=== PATIENT | female | born 1975 | race Caucasian/White ===

== ENCOUNTER 2024-10-02 16:17 | Emergency (ER) | payer OTHER ==
[2024-10-02 17:00] VITALS: RESP 20; TEMP 100.9; BMI 41.8
[2024-10-02] MEDS ORDERED: ACETAMINOPHEN INJECTION 100 ML ONE (17:22)
[2024-10-02] MEDS ORDERED: ONDANSETRON 4 MG/2 ML VIAL ONE (17:22)
[2024-10-02] MEDS: SODIUM CHLORIDE 1,000 ML IV STA (17:40)
[2024-10-02] MEDS: ACETAMINOPHEN 1000 MG/100 ML BAG IVPB ONE (17:40)
[2024-10-02] MEDS: ONDANSETRON 4 MG/2 ML VIAL IVPB ONE (17:41)
[2024-10-02 17:45] LABS: ABSOLUTE IMMATURE GRANULOCYTES 0.02 x10^3/uL (0.0-0.031); BASOPHILS # 0.01 x10^3/uL (0.01-0.08); EOSINOPHIL % 0.3 % (0.7-5.8); EOSINOPHILS # 0.02 x10^3/uL (0.04-0.36); HEMATOCRIT 39.3 % (34.1-44.9); MCHC 33.1 g/dl (32.2-35.5); MEAN CELL VOLUME 92.3 fl (79.4-94.8); MEAN PLT VOLUME 10.3 fl (9.4-12.3); MONOCYTE # 0.04 x10^3/uL (0.24-0.86); MONOCYTE % 0.7 % (4.7-12.5); PLATELET COUNT 200 x10^3/uL (182-369); RDW 12.4 % (12.2-17.1)
[2024-10-02 17:50] LABS: INR 0.95 (0.83-1.09); PROTHROMBIN TIME (PATIENT) 10.6 SEC (9.7-13.0)
[2024-10-02 17:52] LABS: ACTIVATED PTT 22.4 SECONDS (25.2-36.5)
[2024-10-02 18:01] LABS: ALBUMIN 4.2 g/dl (3.4-5.0); ALK PHOS 102 U/L (45-117); ANION GAP 9 mmol/L (4-13); BILIRUBIN,TOTAL 0.7 mg/dl (0.2-1); CALCIUM 9.2 mg/dl (8.5-10.1); CHLORIDE 104 mmol/L (98-107); CO2 25 mmol/L (21-32); GLUCOSE,RANDOM 160 mg/dl (74-106); POTASSIUM 3.9 mmol/L (3.5-5.1); SGOT/AST 15 U/L (15-37); SGPT/ALT 17 U/L (7-52); SODIUM 138 mmol/L (136-145); TOT PROT 5.8 g/dl (6.4-8.2)
[2024-10-02 18:54] LABS: VENOUS O2 SATURATION 79.9 % (70-80); VENOUS PCO2 40.7 mmHg (38-52); VENOUS PH 7.402 (7.310-7.410)
[2024-10-02 19:04] VITALS: BP 120/85; PULSE 109
[2024-10-02 19:27] LABS: LACTIC ACID 2.4 mmol/L (0.4-2.0)
[2024-10-02] MEDS: SODIUM CHLORIDE 0.9% 500 ML INFUS.BAG IV ONE (19:29)
[2024-10-02 20:09] LABS: HIV INTERPRETATION NEGATIVE (NEGATIVE)
[2024-10-02] MEDS ORDERED: cefTRIAXone SODIUM 1 GM VIAL ONE (20:41)
[2024-10-02] MEDS: SODIUM CHLORIDE 1,000 ML IV ONE (20:47)
[2024-10-02] MEDS: CEFTRIAXONE 1,000 MG in DEXTROSE 5%-WATER - 50 ML IVPB ONE (20:49)
[2024-10-03 13:48] LABS: HCV DIAGNOSTIC IN-HOUSE W/RFLX NON-REACTIVE (NONREACTIVE)
== END 2024-10-02 21:45 | disposition home or self-care (01) ==
LOC: FER 16:17
PROC: 3E03329 Introduction of Other Anti-infective into Peripheral Vein, Percutaneous Approach (ICD-10-PCS; principal; 2024-10-02)
PROC: 3E033NZ Introduction of Analgesics, Hypnotics, Sedatives into Peripheral Vein, Percutaneous Approach (ICD-10-PCS; 2024-10-02)
PROC: 3E033GC Introduction of Other Therapeutic Substance into Peripheral Vein, Percutaneous Approach (ICD-10-PCS; 2024-10-02)
PROC: 3E0337Z Introduction of Electrolytic and Water Balance Substance into Peripheral Vein, Percutaneous Approach (ICD-10-PCS; 2024-10-02)
DX: N12 Tubulo-interstitial nephritis, not specified as acute or chronic (principal); R50.9 Fever, unspecified; R51.9 Headache, unspecified; R42 Dizziness and giddiness; R00.0 Tachycardia, unspecified; R11.2 Nausea with vomiting, unspecified; R25.1 Tremor, unspecified; T78.1XXA Other adverse food reactions, not elsewhere classified, initial encounter
CPT/HCPCS: 0241U-QW; 36415; 71045-TC-FY; 74176-TC; 80053; 81003; 81015; 82803; 83605; 84484; 85025; 85610; 85730; 86803; 86850; 86900; 86901; 87040; 87086; 87186; 87389; 93005; 99285-25; J0131